=== PATIENT | female | born 1955 | race Asian ===

== ENCOUNTER → 2024-11-25 | Outpatient (CLI) | payer MEDICARE, BC, OTHER, SELFPAY ==
[2024-11-25 13:24] LABS: Collection Type, Urine Clean Catch
[2024-11-25 13:37] LABS: Bacteria,Urine 1+; Bilirubin,Urine Negative (Negative); Blood,Urine Negative (Negative); Clarity,Urine Clear (Clear/Hazy); Color,Urine Lt-Yellow (Lt Yel-Yel); Glucose, Urine Negative (Negative); Ketones,Urine Negative (Negative); Leukocyte Esterase,Urine Negative (Negative); Nitrite,Urine Negative (Negative); Protein,Urine Negative (Neg - Trace); RBC,Urine < 1 /hpf (0-3); Squamous Epithelial Cell,Urine 4 /hpf (0-5); Urobilinogen,Urine Negative mg/dL (0.0-1.0); WBC,Urine 1 /hpf (0-5)
[2024-11-25 13:46] LABS: Glucose Estimated Average 146 mg/dL (80-131); Hemoglobin A1C 6.7 % Hgb (4.8-6.0)
[2024-11-25 13:50] LABS: Alanine Aminotransferase 40 U/L (10-49); Albumin, Serum 4.2 gm/dL (3.4-4.8); Albumin/Globulin Ratio 1.6 (1.2-2.2); Anion Gap 5 (7-16); Aspartate Amino Transferase 29 U/L (0-34); BUN/Creatinine Ratio 16 Ratio (12-20); Bilirubin,Total 0.7 mg/dL (0.3-1.2); Blood Urea Nitrogen 19 mg/dL (9-23); Calcium 9.6 mg/dL (8.3-10.6); Calcium (Corrected) 9.6 mg/dL (8.5-10.1); Chloride 105 mMol/L (98-107); Cholesterol 142 mg/dL (132-200); Creatinine (Component) 1.2 mg/dL (0.6-1.3); Globulin 2.7 gm/dL (2.3-3.5); Glucose 150 mg/dL (74-106); HDL Cholesterol 65 mg/dL (40-60); Osmolality,Calculated 284 (275-295); Potassium 4.5 mMol/L (3.4-5.1); Sodium 140 mMol/L (136-145); Total Protein 6.9 gm/dL (5.7-8.2); Triglycerides 77 mg/dL (30-150); eGFR 49 See Note
[2024-11-25 13:51] LABS: Alkaline Phosphatase 79 U/L (46-116); Cardiac Risk Estimate 2.2 RATIO (3.7-5.6); LDL Cholesterol,Calculated 62 mg/dL (0-130)
== END | disposition home or self-care (01) ==
LOC: COPL 12:38
PROVIDERS: PCP Internal Medicine; Referring Provider Internal Medicine; Visit Provider Internal Medicine
DX: E11.9 Type 2 diabetes mellitus without complications (principal); I10 Essential (primary) hypertension; E78.5 Hyperlipidemia, unspecified
CPT/HCPCS: 36415; 80053; 80061; 81001; 83036

== ENCOUNTER → 2025-04-07 | Outpatient (CLI) | payer MEDICARE, BC, OTHER, SELFPAY ==
[2025-04-07 12:46] LABS: Collection Type, Urine Clean Catch
[2025-04-07 12:57] LABS: Bacteria,Urine 3+; Bilirubin,Urine Negative (Negative); Blood,Urine Negative (Negative); Clarity,Urine Clear (Clear/Hazy); Color,Urine Lt-Yellow (Lt Yel-Yel); Glucose, Urine Negative (Negative); Hyaline Casts,Urine < 1 /hpf (0-1); Ketones,Urine Negative (Negative); Leukocyte Esterase,Urine Negative (Negative); Nitrite,Urine Negative (Negative); PH,Urine 6.0 (5.0-7.0); Protein,Urine Negative (Neg - Trace); RBC,Urine < 1 /hpf (0-3); Specific Gravity,Urine 1.010 (1.001-1.035); Squamous Epithelial Cell,Urine 8 /hpf (0-5); Urobilinogen,Urine Negative mg/dL (0.0-1.0); WBC,Urine 1 /hpf (0-5)
[2025-04-07 13:07] LABS: Glucose Estimated Average 151 mg/dL (80-131); Hemoglobin A1C 6.9 % Hgb (4.8-6.0)
[2025-04-07 13:16] LABS: Alanine Aminotransferase 42 U/L (10-49); Albumin, Serum 4.2 gm/dL (3.4-4.8); Albumin/Globulin Ratio 1.4 (1.2-2.2); Alkaline Phosphatase 83 U/L (46-116); Anion Gap 8 (7-16); Aspartate Amino Transferase 36 U/L (0-34); BUN/Creatinine Ratio 13 Ratio (12-20); Bilirubin,Total 0.7 mg/dL (0.3-1.2); Blood Urea Nitrogen 17 mg/dL (9-23); Calcium 9.2 mg/dL (8.3-10.6); Calcium (Corrected) 9.2 mg/dL (8.5-10.1); Carbon Dioxide 28.6 mMol/L (20.0-31.0); Cardiac Risk Estimate 2.2 RATIO (3.7-5.6); Chloride 101 mMol/L (98-107); Cholesterol 139 mg/dL (132-200); Creatinine (Component) 1.3 mg/dL (0.6-1.3); Globulin 2.9 gm/dL (2.3-3.5); Glucose 156 mg/dL (74-106); HDL Cholesterol 64 mg/dL (40-60); LDL Cholesterol,Calculated 60 mg/dL (0-130); Osmolality,Calculated 280 (275-295); Potassium 4.5 mMol/L (3.4-5.1); Sodium 138 mMol/L (136-145); Total Protein 7.1 gm/dL (5.7-8.2); Triglycerides 73 mg/dL (30-150); eGFR 44 See Note
== END | disposition home or self-care (01) ==
LOC: COPL 12:18
PROVIDERS: PCP Internal Medicine; Referring Provider Internal Medicine; Visit Provider Internal Medicine
DX: E11.9 Type 2 diabetes mellitus without complications (principal); I10 Essential (primary) hypertension; E78.5 Hyperlipidemia, unspecified
CPT/HCPCS: 36415; 80053; 80061; 81001; 83036

== ENCOUNTER → 2025-04-14 | Outpatient (CLI) | payer MEDICARE, BC, OTHER, SELFPAY ==
[2025-04-14 12:33] LABS: OBS Performed By LAB; OBS QC OK? Yes
[2025-04-14 14:46] LABS: Occult Blood, Stool Negative (Negative); Occult Blood, Stool #2 Negative (Negative); Occult Blood, Stool #3 Negative (Negative)
[2025-04-14 14:47] LABS: OBS Developer Lot # 124
== END | disposition home or self-care (01) ==
LOC: SLDO 12:20
PROVIDERS: PCP Internal Medicine; Referring Provider Internal Medicine; Visit Provider Internal Medicine
DX: E11.9 Type 2 diabetes mellitus without complications (principal); I10 Essential (primary) hypertension; Z12.11 Encounter for screening for malignant neoplasm of colon
CPT/HCPCS: 82270